=== PATIENT | female | born 1945 | race African-American/Black ===

== ENCOUNTER 2016-11-13 04:25 | Emergency (ER) | payer OTHER ==
[~2016-11-13] VITALS: Ht 165.1 cm; Wt 83.0 kg
[2016-11-13] MEDS ORDERED: SODIUM CHLORIDE 0.9% 1,000 ML IV ONE (06:23)
[2016-11-13] MEDS ORDERED: MECLIZINE 12.5MG TABLET PO ONE (06:30)
[2016-11-13 07:11] LABS: CLARITY URINE CLEAR (CLEAR); COLOR URINE YELLOW (YELLOW); GLUCOSE URINE NEGATIVE (NEGATIVE); KETONES URINE NEGATIVE (NEGATIVE); LEUKOCYTE ESTERASE URINE NEGATIVE (NEGATIVE); NITRITE URINE NEGATIVE (NEGATIVE); OCCULT BLOOD URINE NEGATIVE (NEGATIVE); PROTEIN URINE NEGATIVE (NEGATIVE); SPECIFIC GRAVITY URINE 1.017 (1.005-1.030); UROBILINOGEN URINE 0.2 E.U./dL (0.2-1.0)
[2016-11-13 07:12] LABS: BASOPHILS % 0.4 % (0.0-2.0); EOSINOPHILS % 1.6 % (0.0-5.0); HEMATOCRIT. 42.1 % (36.0-48.0); HEMOGLOBIN. 13.9 g/dL (12.0-16.0); LYMPHOCYTES % 21.4 % (20.0-50.0); MEAN CORPUSCULAR HEMOGLOBIN 26.8 pg (28.0-32.0); MEAN CORPUSCULAR VOLUME 81.2 fL (81.0-99.0); MEAN PLATELET VOLUME 8.9 fl (7.4-10.4); MONOCYTES % 7.4 % (2.0-8.0); NEUTROPHILS % 69.2 % (40.0-76.0); PLATELET 313 x1000/uL (130-400); RED BLOOD CELL COUNT 5.19 mill/uL (4.2-5.4); RED CELL DISTRIBUTION WIDTH 14.9 % (11.6-14.6)
[2016-11-13 07:21] LABS: PROTHROMBIN TIME 10.2 sec
[2016-11-13 07:30] LABS: CARBON DIOXIDE 26 mEq/L (21-32); CHLORIDE 105 mEq/L (98-107); TROPONIN I < 0.02 ng/mL (0.00-0.04)
[2016-11-13 10:31] VITALS: BP 120/82
== END 2016-11-13 10:35 | disposition home or self-care (01) ==
LOC: ER 04:25
DX: H81.10 Benign paroxysmal vertigo, unspecified ear (principal); I10 Essential (primary) hypertension
CPT/HCPCS: 36415; 80053; 81003; 82962; 83880; 84484; 85025; 85610; 93005; 96360; 96361; 99285; J7030; Z7610; J8597

== ENCOUNTER 2019-02-12 23:14 | Emergency (ER) | payer OTHER ==
[~2019-02-12] VITALS: Ht 167.6 cm; Wt 87.0 kg
[2019-02-13] MEDS ORDERED: IBUPROFEN 400MG TABLET PO ONE (01:15)
[2019-02-13] MEDS ORDERED: SODIUM CHLORIDE 0.9% 1,000 ML IV ONE (01:26)
[2019-02-13] MEDS ORDERED: MORPHINE SULFATE 4 MG/ML CPJ (NOT FOR IM USE) IV STA (01:26)
[2019-02-13 02:12] LABS: BASOPHILS % 0.7 % (0.0-2.0); EOSINOPHILS % 0.4 % (0.0-5.0); HEMATOCRIT. 42.6 % (36.0-48.0); HEMOGLOBIN. 14.2 g/dL (12.0-16.0); LYMPHOCYTES % 11.6 % (20.0-50.0); MEAN CORPUSCULAR HEMOGLOBIN 27.2 pg (28.0-32.0); MEAN CORPUSCULAR VOLUME 81.7 fL (81.0-99.0); MONOCYTES % 12.2 % (2.0-8.0); NEUTROPHILS % 75.1 % (40.0-76.0); PLATELET 398 x1000/uL (130-400); RED BLOOD CELL COUNT 5.21 mill/uL (4.2-5.4); RED CELL DISTRIBUTION WIDTH 13.9 % (11.6-14.6)
[2019-02-13 02:16] LABS: CHLORIDE 106 mEq/L (98-107)
[2019-02-13] MEDS ORDERED: IOHEXOL-300 100 ML BOTTLE ONE (06:33)
[2019-02-13 07:30] VITALS: BP 120/78
== END 2019-02-13 08:32 | disposition home or self-care (01) ==
LOC: ER 23:14
DX: M19.041 Primary osteoarthritis, right hand (principal); Z87.828 Personal history of other (healed) physical injury and trauma
CPT/HCPCS: 36415; 73090; 73130; 73201; 80053; 83605; 84550; 85025; 85651; 96361; 96374; 99284; J2270; J7030; Q9967; Z7610

== ENCOUNTER 2024-04-24 15:02 | Emergency (ER) | payer MEDICARE, OTHER ==
[~2024-04-24] VITALS: Ht 165.1 cm; Wt 79.3 kg
[~2024-04-24 15:02] MED LIST: ATEN50TA PO; DORZ10DR9 EACHEYE; HYDR25TA PO; LATA2.5D14 EACHEYE; LOSA50TA41 PO; MEMA10TA20 PO; NIFE-33 PO; RISP0.5T79 PO
[2024-04-24 15:32] VITALS: O2SAT 99
[2024-04-24] MEDS ORDERED: TOPUD MT (16:11)
[2024-04-24] MEDS ORDERED: LIDO700A15 TP (16:11)
[2024-04-24 16:15] VITALS: TEMP 97.4
[2024-04-24] MEDS: LIDOCAINE 5% PATCH TOP SCH (16:15)
[2024-04-24] MEDS: ACETAMINOPHEN 325MG TABLET PO NR (16:15)
[2024-04-24] MEDS ORDERED: ACETAMINOPHEN 325MG TABLET PO ONE (16:15)
[2024-04-24 17:48] VITALS: BP 152/65; PULSE 77; RESP 16; O2SAT 98
== END 2024-04-24 17:49 | disposition home or self-care (01) ==
LOC: ER 15:02
DX: M54.41 Lumbago with sciatica, right side (principal); I10 Essential (primary) hypertension; Z79.899 Other long term (current) drug therapy; Z88.6 Allergy status to analgesic agent
CPT/HCPCS: 99283